=== PATIENT | male | born 1975 | race Caucasian/White ===

== ENCOUNTER 2019-07-19 06:45 | Day surgery (SDC) | payer BC ==
[~2019-07-19 06:45] MED LIST: Lactated Ringers 1,000 ML IV SCH; Sodium Chloride 0.9% 10 ML SDV IV PRN; Sodium Chloride 0.9% 10 ML Syringe FLUSH PRN; Sodium Chloride 0.9% 2.5 ML Syringe FLUSH PRN; ceFAZolin 1 GM in Premix Bag 1 BAG IV ONE
[2019-07-19] MEDS ORDERED: Bacitracin Oint 28.35 GM Tube ONE (07:27)
[2019-07-19] MEDS ORDERED: Bupivacaine 0.5% 30 ML SDV ONE (07:27)
[2019-07-19] MEDS ORDERED: Midazolam 1 MG/ML 2 ML SDV ONE (07:27)
[2019-07-19] MEDS ORDERED: Lidocaine 1% 20 ML MDV ONE (07:27)
[2019-07-19] MEDS ORDERED: SILDENAFIL CITRATE PO PRN (09:21)
[2019-07-19] MEDS ORDERED: Testosterone Cypionate 200 MG/ML MDV IM SCH (09:30)
[2019-07-19] MEDS ORDERED: Dulaglutide [Trulicity] 1.5 MG SUBCUT SCH (09:30)
[2019-07-19] MEDS ORDERED: cloNIDine 0.1 MG Tab PO SCH (09:30)
--- NOTE | 2019-07-19 11:00 | OR ---
SURGEON: Lionel Harmon M.D. DATE OF PROCEDURE: 07/19/2019 PREOPERATIVE DIAGNOSIS: Phimosis with recurrent balanitis. POSTOPERATIVE DIAGNOSIS: Phimosis with recurrent balanitis. OPERATION: Circumcision. DESCRIPTION OF PROCEDURE: The patient was placed in the supine position. External area was prepped and draped in sterile drapes. Lidocaine 1% was infiltrated circumferentially at the base of the penis again at the site of the incision. Incision was then made. The excess foreskin was removed. Bleeding was stopped using 3-0 chromic ties. The skin edges were reapproximated using interrupted 3-0 Chromic sutures. Bacitracin was applied. The patient was moved back to his room in good condition. CHELLY / DAPHNE /[id number]
[2019-07-19] MEDS ORDERED: atorvaSTATin 40 MG Tab PO SCH (21:00)
[2019-07-19] MEDS ORDERED: Potassium Chloride 10 MEQ Tab.ER PO SCH (21:00)
[2019-07-19] MEDS ORDERED: metFORMIN 500 MG Tab PO SCH (21:00)
[2019-07-19] MEDS ORDERED: amLODIPine 5 MG Tab PO SCH (21:00)
[2019-07-20] MEDS ORDERED: Losartan 50 MG Tab PO SCH (09:00)
[2019-07-20] MEDS ORDERED: Cholecalciferol (Vitamin D3) 25 MCG Tab PO SCH (09:00)
[2019-07-20] MEDS ORDERED: Escitalopram 10 MG Tab PO SCH (09:00)
[2019-07-20] MEDS ORDERED: Empagliflozin [Jardiance] 25 MG PO SCH (09:00)
[2019-07-20] MEDS ORDERED: Hydrochlorothiazide 25 MG Tab PO SCH (09:00)
== END 2019-07-19 10:00 | disposition home or self-care (01) ==
LOC: MW.SDS 06:45
PROVIDERS: ATTEND Urology
DX: N47.1 Phimosis (principal); N48.1 Balanitis; N52.9 Male erectile dysfunction, unspecified; E11.9 Type 2 diabetes mellitus without complications; I10 Essential (primary) hypertension; E78.5 Hyperlipidemia, unspecified; K21.9 Gastro-esophageal reflux disease without esophagitis; E78.00 Pure hypercholesterolemia, unspecified; F32.9 Major depressive disorder, single episode, unspecified; Z79.84 Long term (current) use of oral hypoglycemic drugs; Z79.899 Other long term (current) drug therapy
CPT/HCPCS: 54161; 82962; A9270; J0690; J2001; J3490; J7120; 88304

== ENCOUNTER 2019-10-20 18:47 | Emergency (ER) | payer BC ==
[2019-10-20] MEDS ORDERED: Ibuprofen 600 MG Tab PO ONE (19:10)
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
== END 2019-10-20 19:46 | disposition home or self-care (01) ==
LOC: MW.ED 18:47
DX: S01.21XA Laceration without foreign body of nose, initial encounter (principal); E11.9 Type 2 diabetes mellitus without complications; E78.00 Pure hypercholesterolemia, unspecified; I10 Essential (primary) hypertension; E66.9 Obesity, unspecified; Z68.35 Body mass index [BMI] 35.0-35.9, adult; Z79.84 Long term (current) use of oral hypoglycemic drugs; Z79.899 Other long term (current) drug therapy; Y04.0XXA Assault by unarmed brawl or fight, initial encounter
CPT/HCPCS: 99284; A9270

== ENCOUNTER 2023-11-20 08:30 | Day surgery (SDC) | payer BC ==
[2023-11-20] MEDS: Lactated Ringers 1,000 ML IV SCH (09:00)
[2023-11-20] MEDS ORDERED: propofoL 50 ML ONE (09:06)
[2023-11-20] MEDS ORDERED: Ketorolac 30 MG/ML SDV ONE (09:30)
== END 2023-11-20 11:00 | disposition home or self-care (01) ==
LOC: MW.SDS 08:30
PROVIDERS: ATTEND Surgery
DX: Z12.11 Encounter for screening for malignant neoplasm of colon (principal); D12.2 Benign neoplasm of ascending colon; K57.30 Diverticulosis of large intestine without perforation or abscess without bleeding; F32.A Depression, unspecified; K21.9 Gastro-esophageal reflux disease without esophagitis; E66.9 Obesity, unspecified; E78.5 Hyperlipidemia, unspecified; I10 Essential (primary) hypertension; E11.9 Type 2 diabetes mellitus without complications; Z79.899 Other long term (current) drug therapy; Z79.84 Long term (current) use of oral hypoglycemic drugs; Z98.890 Other specified postprocedural states; Z68.33 Body mass index [BMI] 33.0-33.9, adult
CPT/HCPCS: 45385; 82947; J1885; J2704; J7120; 00811